=== PATIENT | female | born 1935 ===

== ENCOUNTER → 2023-12-09 | Outpatient (CLI) | payer MEDICARE ==
[~2023-12-09] VITALS: Ht 172.7 cm; Wt 75.0 kg
[~2023-12-09] MED LIST: CELE200 PO; CETI-450 PO; DICL100G60 TP; FLUT16SP NASAL; GABA-1181 PO; LEVO5TAB29 PO; LIDO5CRE18 TP; LOSA-381 PO; [UNRECOGNIZED DRUG - CODE] IM
[2023-12-09 12:29] VITALS: BP 128/80; PULSE 70; RESP 18; TEMP 98.1; O2SAT 99
== END | disposition home or self-care (01) ==
LOC: SRCNTR 11:51
PROVIDERS: ATTEND Internal Medicine Pulmonary Disease
DX: R51.9 Headache, unspecified (principal); M54.2 Cervicalgia; G89.29 Other chronic pain; I10 Essential (primary) hypertension; E78.5 Hyperlipidemia, unspecified; Z88.8 Allergy status to other drugs, medicaments and biological substances; Z87.891 Personal history of nicotine dependence; Z90.710 Acquired absence of both cervix and uterus; Z98.890 Other specified postprocedural states; Z79.899 Other long term (current) drug therapy
CPT/HCPCS: G0463; Z7500

== ENCOUNTER → 2024-01-06 | Outpatient (CLI) | payer MEDICARE ==
[~2024-01-06] VITALS: Ht 172.7 cm; Wt 74.0 kg
[2024-01-06 13:10] VITALS: BP 157/77; PULSE 58; RESP 18; TEMP 98.1; O2SAT 100
== END | disposition home or self-care (01) ==
LOC: SRCNTR 12:05
PROVIDERS: ATTEND Internal Medicine Pulmonary Disease
DX: M54.2 Cervicalgia (principal); G89.29 Other chronic pain; R51.9 Headache, unspecified; I10 Essential (primary) hypertension; E78.5 Hyperlipidemia, unspecified
CPT/HCPCS: G0463